=== PATIENT | male | born 1940 | race Hispanic/Latino ===

== ENCOUNTER 2017-12-20 13:28 | Inpatient (IN) | payer MEDICARE, MEDICAID ==
[~2017-12-20 13:28] MED LIST: ISOVUE-370 76%-LOCM 1 ML ONE
--- NOTE | 2017-12-20 14:05 | RAD ---
SINGLE VIEW OF THE CHEST: COMPARISON: 09/25/06. HISTORY: Chest pain with shortness of breath. FINDINGS: A single view of the chest shows an enlarged but stable cardiomediastinal silhouette. There is no ev idence of consolidation, mass, or pleural effusion. Degenerative changes are seen in the spine. IMPRESSION: No evidence of acute cardiopulmonary disease. POS: [facility]
[2017-12-20 14:15] LABS: Hemoglobin 8.3 g/dL (14.0-18.0); Mean Corpuscular HGB CONC 29.3 g/dL (32.0-36.0); Mean Corpuscular Hemoglobin 22.3 pg (27.0-31.0); Mean Platelet Volume 10.5 fL (7.4-10.4); Platelet Count 222 thou/uL (130-400); RBC Distribution Width 20.5 % (11.5-14.5); Red Blood Cell (RBC) Count 3.71 mill/uL (4.70-6.10); White Blood Cell (WBC) Count 5.2 thou/uL (4.8-10.8)
[2017-12-20 14:22] LABS: ALT (SGPT) 13 U/L (8-55); AST (SGOT) 21 U/L (5-34); Albumin 3.2 g/dL (3.4-4.8); Alkaline Phosphatase 118 U/L (40-150); Anion Gap 10 mmol/L (10-20); BUN (Urea Nitrogen) 16 mg/dL (8.4-25.7); Bilirubin, Total 0.8 mg/dL (0.2-1.2); CK (CPK) 39 U/L (30-200); Calc. Creatinine Clearance 0 mL/min (70-130); Calcium 8.6 mg/dL (7.8-10.44); Carbon Dioxide 23 mmol/L (23-31); Chloride 111 mmol/L (98-107); Estimated GFR-MDRD 60; Globulin 3.7 g/dL (2.4-3.5); Glucose 124 mg/dL (83-110); Lipase 45 U/L (8-78); Potassium 3.8 mmol/L (3.5-5.1); Protein, Total 6.9 g/dL (5.8-8.1); Sodium 140 mmol/L (136-145)
[2017-12-20 14:26] LABS: CKMB 1.3 ng/mL (0-6.6); Troponin I 0.032 ng/mL (< 0.028)
[2017-12-20] MEDS ORDERED: hydrALAZINE 20 MG/ML VIAL ONE (14:51)
--- NOTE | 2017-12-20 14:53 | CT ---
CTA OF THE CHEST WITH CONTRAST: COMPARISON: None. HISTORY: Dyspnea, difficulty breathing for 2-3 days. TECHNIQUE: Multiple contiguous axial images were obtained in a CTA of the chest with contrast per embolism cory col. Three-D oblique MIP reformats and direct coronal reformats were performed. FINDINGS: Pulmonary arteries are well opacified without filling defect to suggest pulmonary emboli. The heart is normal in size. There is hypertrophy of the left ventricular wall. No hilar or mediastinal lymph adenopathy are seen. There are small bilateral pleural effusions. No focal infiltrates or nodules are seen in the lungs. Degenerative changes are seen in the spine. The visualized subdiaphragmatic structures are unremarka ble. The chest wall soft tissues are unremarkable. IMPRESSION: 1. No evidence of pulmonary thromboembolism. 2. Small bilateral pleural effusions. POS: [facility]
[2017-12-20 15:00] LABS: #Eosinphils 0.1 thou/uL (0.0-0.7); #Monocytes 0.4 thou/uL (0.11-0.59); #Neutrophils 3.7 thou/uL (1.40-6.50); %Basophils 0.4 % (0.0-1.0); %Eosinophils 2.7 % (0.0-10.0); %Lymphocytes 18.9 % (21.0-51.0); %Monocytes 8.4 % (0.0-10.0); %Neutrophils 69.6 % (42.0-75.0); Anisocytosis SLIGHT = 6-15 cells (100X) (0-5/hpf); Hypochromia SLIGHT = 6-15 cells (100X) (0-5/hpf); MDiff Complete? YES; PLT Morphology Comment Appears Adequate
[2017-12-20] MEDS ORDERED: Azithromycin 500 MG in Sodium Chloride 0.9% 250 ML 250 ML IVPB SCH (15:15)
[2017-12-20] MEDS ORDERED: Ondansetron HCl/PF 4 MG/2 ML Vial IVP PRN (16:23)
[2017-12-20] MEDS ORDERED: Calcium Carbonate 500 MG ChewTAB PO PRN (16:23)
[2017-12-20] MEDS ORDERED: Acetaminophen 325 MG TAB PO PRN (16:23)
[2017-12-20] MEDS ORDERED: Milk Of Magnesia 30 ML UDCUP PO PRN (16:23)
[2017-12-20] MEDS ORDERED: Mag-Al 1200 mg/1200 mg/30 ML UDCUP PO PRN (16:23)
[2017-12-20] MEDS ORDERED: Dextrose 50% Abboject 50 ML SYRINGE SLOW IVP PRN (16:33)
[2017-12-20] MEDS ORDERED: Dextrose 5% in Water 1,000 ML IV PRN (16:33)
[2017-12-20] MEDS ORDERED: HumaLOG 300 UNITS/3 ML VIAL SC PRN (16:33)
--- NOTE | 2017-12-20 16:54 | PDOC.EVN ---
Attending Addendum - Attending Addendum I personally evaluated the patient and discussed the management with Dr. Franz. I agree with the History, Examination, Assessment and Plan documented in her H& P with any addition or exceptions noted below. Patient with history of sdCHF, CAD, presenting with 2-3 day history of increasing shortness of breath, cough productive of clear sputum, and dyspnea on exertion, with some orthopnea. He has recently returned from [place] after a 3 month stint. His vitals are stable, sats are 98% on 2L. His has mild rales on lung exam, and CTA that was performed shows bilateral pleural effusions. He has no wheezes or signs of obstructive lung disease on exam. Troponins are indeterminate, BNP elevated above baseline. His Hgb is 8.3 with microcytosis ( chronic). He will be admitted to tele for CHF exacerbation. Strict I/O, trend troponins. Echo as has not had one in over 4 years. Diuresis as needed. Ensure he is medically optimized. In regards to anemia, will review clinic records to see if this has been worked up as is chronic in nature and he has good follow up at our clinic.
[2017-12-20] MEDS ORDERED: Furosemide 40 MG/4 ML VIAL SLOW IVP SCH (17:00)
[2017-12-20 17:06] VITALS: BMI 22.8
[2017-12-20 17:13] LABS: Anion Gap 10 mmol/L (10-20); BUN (Urea Nitrogen) 18 mg/dL (8.4-25.7); Calc. Creatinine Clearance 45 mL/min (70-130); Calcium 8.3 mg/dL (7.8-10.44); Carbon Dioxide 23 mmol/L (23-31); Chloride 110 mmol/L (98-107); Estimated GFR-MDRD 69; Glucose 94 mg/dL (83-110); Potassium 3.8 mmol/L (3.5-5.1); Sodium 139 mmol/L (136-145)
[2017-12-20 17:18] LABS: Troponin I 0.037 ng/mL (< 0.028)
[2017-12-20] MEDS ORDERED: Carvedilol 25 MG TAB PO SCH (19:45)
[2017-12-20] MEDS ORDERED: hydrALAZINE 20 MG/ML VIAL SLOW IVP PRN (19:45)
[2017-12-20 20:15] LABS: Troponin I 0.045 ng/mL (< 0.028)
[2017-12-20] MEDS ORDERED: Prevnar 13-Val Conj/PF 0.5 ML SYRINGE IM ONE (21:00)
[2017-12-20] MEDS: Allopurinol 100 MG TAB PO SCH (21:06)
[2017-12-20] MEDS: Ferrous Sulfate 325 MG TAB PO SCH (21:06)
[2017-12-20] MEDS: Atorvastatin Calcium 40 MG TAB PO SCH (21:06)
--- NOTE | 2017-12-20 22:55 | HP-2 ---
DATE OF ADMISSION: 12/20/2017 at 1500. CODE STATUS: FULL. PRIMARY CARE PHYSICIAN: [facility]. ATTENDING PHYSICIAN: Dr. Sampson. RESIDENT: Dr. Aranza Franz, PGY-3 HISTORIAN: Patient's daughter and patient, use of healthcare interpreter CHIEF COMPLAINT: Difficulty breathing for the last 3 days. HISTORY OF PRESENT ILLNESS: Patient is a 77-year-old male who presented to the Emergency Department with chief complaint of shortness of breath for the last 2-3 days. The patient's daughter endorses that he lives with her at home and he has been increasingly short of breath over this time, he even gets short of breath sitting up. She also endorses that he has had nausea and has been spitting up quite a bit of phlegm over the last few days. He endorses that he had these symptoms about 2 years ago and they have not returned since. Approximately 2 years ago was last time patient was admitted to the hospital for a CHF exacerbation. He specifically denied any previous history of [place], though he does have history of coronary artery disease with stent placement. He also denies any history of blood clots. No recent surgeries or prolonged periods of immobility. Patient also returned to the [place] from [place] on 11/27/2017. His daughter states that he was there for approximately 3 months. He denies any fevers, chills, night sweats, chest pain , diarrhea, constipation, abdominal pain, rashes, weakness or syncopal episodes. PAST MEDICAL HISTORY: 1. History of congestive heart failure with reduced ejection fraction echo in 2013 showed EF of 40-45% 2. History of microcytic anemia. Patient has had previous colonoscopy which showed diverticulosis. 3. Gout. 4. Peripheral artery disease. 5. Diabetes mellitus type 2, not currently on medications. 6. Osteoarthritis. 7. Benign prostatic hyperplasia. 8. Coronary artery disease with stent placement. 9. Hyperlipidemia. 10. Hypertension. PAST SURGICAL HISTORY: Cardiac stent placement. ALLERGIES: No known drug allergies. MEDICATIONS: 1. Enalapril 20 mg p.o. daily. 2. Atorvastatin 40 mg p.o. daily. 3. Carvedilol 25 mg daily. 4. Sublingual nitro 0.4 mg p.r.n. chest pain. 5. Ferrous sulfate 325 mg p.o. b.i.d. 6. Allopurinol 100 mg takes 2 tabs daily. 7. Colchicine 0.6 mg 1 tab p.o. daily. FAMILY HISTORY: None pertinent. SOCIAL HISTORY: Patient quit smoking approximately 6 years ago. He was smoking half a pack a day since the age of 15. He specifically denied any alcohol or drug use. He denies any ill contacts and lives with his daughter in [place], [place]. REVIEW OF SYSTEMS: Ten-point review of systems was conducted. Pertinent positives are mentioned in the HPI, all others are negative. PHYSICAL EXAMINATION: VITAL SIGNS: Blood pressure 151/62, pulse 71, respirations 20, T-max 98.1, pulse ox 98% on 2 liters. Current weight 54 kilograms. GENERAL: The patient is alert and oriented x3. He does not appear in acute distress. He is well developed, appropriately interactive during the interview and exam. healthcare interpreter line used. Questions answered appropriately. EYES: Pupils are equally round and reactive to light and accommodation. Extraocular muscles are intact. Conjunctiva within normal limits. Arcus senilis noted. ENT: Nasal mucosa and oropharynx moist without erythema. NECK: Supple, no lymphadenopathy, no thyromegaly. CARDIOVASCULAR: Regular rate and rhythm, no murmurs, gallops, clicks or rubs noted. Radial pulses +2. RESPIRATORY: Normal effort, no retractions. Diffuse rales throughout lung exam with mild end expiratory wheezing at bases. SKIN: Warm and dry, free of cyanosis or lesions. ABDOMEN: Soft, nontender to palpation. Bowel sounds present in all 4 quadrants. No masses or distention. EXTREMITIES: Showed no clubbing, cyanosis or edema. MUSCULOSKELETAL: Structure and tone within normal limits. Full range of motion. The patient is moving all 4 extremities, though he does appear weak and has difficulty sitting up in bed. NEUROLOGIC: No focal deficits. PSYCHIATRIC: Appropriate. LABORATORY DATA: White count 5.2, hemoglobin 8.3, hematocrit 28.1, platelets 222, MCV at 76. Sodium 140, potassium 3.8, chloride 111, bicarbonate 23, BUN 16 , creatinine 1.18, glucose 124, calcium 8.6, AST 21, ALT 13, alkaline phosphatase 118, total protein 6.9, albumin 3.2, total bilirubin 0.8, GFR of 60 , D-dimer of 1.15. Lipase of 45. BNP of 2275. Troponin of 0.032, which is indeterminate, CK of 39. Chest x-ray showed no acute findings. CTA of the chest showed no acute pulmonary embolisms. Though presence of bilateral pleural effusions. ASSESSMENT AND PLAN: This is a 77-year-old male with: 1. Acute reduced ejection fraction congestive heart failure exacerbation. We will admit the patient to the telemetry service. Patient last had an echo in 2013 which showed an ejection fraction of 40-45% so we will repeat this. Patient states that he does not have a stitcher feeder. He just followed in our clinic for management of his heart failure. I did note he used to be on oral Lasix daily and now this is no longer on his medication list. We will start IV Lasix to aid with diuresis and measure strict I's and O's. We have adjusted his diet to fluid restricted, low sodium diet. Education will be provided by the staff concerning congestive heart failure and we will also attempt to set him up with the [facility] in [facility]. We will continue his home TYREE inhibitor, beta nikki and statin. 2. History of coronary artery disease. We will continue patient's home statin. The patient is not on any antiplatelet agent, so we will start him on 81 mg aspirin. 3. Diabetes mellitus type 2. Patient is not currently on medications, though he was previously on metformin. We will check an A1c and conduct Accu-Cheks and give sliding scale as needed. 4. Microcytic anemia. Patient reports that he had a colonoscopy which showed diverticulosis, but no evidence of any acute bleed. His last iron studies in 2014 showed decreased TIBC within normal ferritin and iron, so this could possibly represent anemia of chronic disease. We will repeat iron studies during his stay. 5. Elevated troponins. We will trend these likely secondary to demand ischemia. Patient did not have any complaints of chest pain. 6. Hypertension. We will restart his home medications of enalapril and carvedilol. 7. Hyperlipidemia as above. 8. Gout. We will continue patient's home medication of allopurinol and colchicine. 9. Deep venous thrombosis prophylaxis. We will use Lovenox. DISPOSITION AND LENGTH OF STAY: Greater than 2 days. Symptomatic medications will be provided. History and physical exam as well as management was discussed with Dr. Sampson. FELIBERTO
[2017-12-21 00:21] LABS: Troponin I 0.048 ng/mL (< 0.028)
[2017-12-21 03:21] LABS: #Eosinphils 0.2 thou/uL (0.0-0.7); #Lymphocytes 1.5 thou/uL (1.20-3.40); #Monocytes 0.7 thou/uL (0.11-0.59); #Neutrophils 4.4 thou/uL (1.40-6.50); %Basophils 0.1 % (0.0-1.0); %Eosinophils 2.9 % (0.0-10.0); %Lymphocytes 22.1 % (21.0-51.0); %Monocytes 10.3 % (0.0-10.0); %Neutrophils 64.6 % (42.0-75.0); Anisocytosis SLIGHT = 6-15 cells (100X) (0-5/hpf); Hemoglobin 8.4 g/dL (14.0-18.0); Hypochromia SLIGHT = 6-15 cells (100X) (0-5/hpf); MDiff Complete? YES; Mean Corpuscular HGB CONC 30.8 g/dL (32.0-36.0); Mean Corpuscular Hemoglobin 22.9 pg (27.0-31.0); Mean Corpuscular Volume 74.4 fl (80.0-94.0); Mean Platelet Volume 10.1 fL (7.4-10.4); Platelet Count 250 thou/uL (130-400); RBC Distribution Width 20.5 % (11.5-14.5); Red Blood Cell (RBC) Count 3.65 mill/uL (4.70-6.10); White Blood Cell (WBC) Count 6.8 thou/uL (4.8-10.8)
[2017-12-21 03:22] LABS: Troponin I 0.045 ng/mL (< 0.028)
[2017-12-21 03:28] LABS: Hemoglobin A1c 5.6 % (4.0-6.0)
[2017-12-21] MEDS ORDERED: Carvedilol 25 MG TAB PO SCH ×2 (08:00→20:00)
--- NOTE | 2017-12-21 08:49 | PDOC.FM ---
- Subjective Subjective: Patient doing well this AM. No significant overnight events. His shortness of breath has improved. Patient denies chest pain or palpitations. No changes on telemetry strip. - Objective MAR Reviewed: Yes Vital Signs & Weight: Vital Signs (12 hours) Temp Pulse Resp BP BP BP BP 12/21/17 07:50 98.3 F 60 18 12/21/17 07:17 98.3 F 60 18 174/75 H 185/81 H 185/84 H 12/21/17 03:50 98.6 F 59 L 16 163/75 H 12/20/17 23:10 98.4 F 57 L 20 151/67 H Pulse Ox 12/21/17 07:50 12/21/17 07:17 99 12/21/17 03:50 98 12/20/17 23:10 100 Weight Weight 50.757 kg I&O: 12/20/17 12/21/17 12/22/17 06:59 06:59 06:59 Intake Total 520 Output Total 1450 Balance -930 Result Diagrams: 12/21/17 02:43 12/20/17 16:43 EKG Reviewed by me: Yes Radiology Reviewed by me: Yes <Mirta Portilol - Last Filed: 12/21/17 09:07> - Objective Vital Signs & Weight: Vital Signs (12 hours) Temp Pulse Resp BP BP BP BP 12/21/17 09:29 12/21/17 07:50 98.3 F 60 18 12/21/17 07:17 98.3 F 60 18 174/75 H 185/81 H 185/84 H 12/21/17 03:50 98.6 F 59 L 16 163/75 H 12/20/17 23:10 98.4 F 57 L 20 151/67 H Pulse Ox 12/21/17 09:29 96 12/21/17 07:50 12/21/17 07:17 99 12/21/17 03:50 98 12/20/17 23:10 100 Weight Weight 50.757 kg I&O: 12/20/17 12/21/17 12/22/17 06:59 06:59 06:59 Intake Total 520 Output Total 1450 300 Balance -930 -300 Result Diagrams: 12/21/17 02:43 12/20/17 16:43 <Cristopher Sampson - Last Filed: 12/21/17 11:07> Phys Exam - Physical Examination Constitutional: NAD HEENT: moist MMs Neck: supple Wheezing diffusely throughout posteriorly Cardiovascular: RRR, no significant murmur Gastrointestinal: soft, no distention Musculoskeletal: no edema Neurological: non-focal, moves all 4 limbs Psychiatric: normal affect, A&O x 3 Skin: cap refill <2 seconds <LindseyMirta - Last Filed: 12/21/17 09:07> Dx/Plan (1) Acute exacerbation of CHF (congestive heart failure) Code(s): I50.9 - HEART FAILURE, UNSPECIFIED Status: Acute (2) CAD (coronary artery disease) Code(s): I25.10 - ATHSCL HEART DISEASE OF [place] CORONARY ARTERY W/O ANG PCTRS Status: Chronic (3) Microcytic anemia Code(s): D50.9 - IRON DEFICIENCY ANEMIA, UNSPECIFIED Status: Acute (4) Elevated troponin Code(s): R74.8 - ABNORMAL LEVELS OF OTHER SERUM ENZYMES Status: Acute (5) HTN (hypertension) Code(s): I10 - ESSENTIAL (PRIMARY) HYPERTENSION Status: Chronic QualifierTitle: Hypertension type: essential hypertension Qualified Code( s): I10 - Essential (primary) hypertension (6) HLD (hyperlipidemia) Code(s): E78.5 - HYPERLIPIDEMIA, UNSPECIFIED Status: Chronic (7) Diabetes mellitus type 2 Code(s): E11.9 - TYPE 2 DIABETES MELLITUS WITHOUT COMPLICATIONS Status: Chronic - Plan Plan: 1. Acute CHF exacerbation - Echo in 2013 showed EF 40-45% - Small bilateral pleural effusions seen on CTA chest - Continue BB, TYREE-I, Lasix - Strict I&O's - Echo pending - BNP 2274 which is elevated from baseline - Fluid restriction diet - D-dimer elevated at 1.15, CTA negative for PE - On 2L of O2 2. CAD s/p stent - Continue BB - Continue atorvastatin - HH diet 3. Microcytic anemia - Prior iron studies showed normocytic anemia consistent with ACD - Repeat iron studies 4. DM II - Not on any medications - HgA1c 5.6 - Accuchecks ACHS 5. Elevated troponins - Downtrended - No CP 6. HTN - Continue home medications 7. HLD - continue home medications Dispo: Stable. Continue diuresis. Consider adding nebulizer treatments for wheezing. Possible d/c tomorrow. <Mirta Portillo - Last Filed: 12/21/17 09:07> Attending Addendum - Attending Addendum I personally evaluated the patient and discussed the management with Dr. Portillo. I agree with the History, Examination, Assessment and Plan documented above with any addition or exceptions noted below. Patient feels better after mild diuresis. His BP are elevated and we will escalate anti HTN therapy today. Continue diuresis and encourage ambulation. If doing well, likely discharge tomorrow on maintenance Lasix therapy as outpatient. <Cristopher Sampson - Last Filed: 12/21/17 11:07>
[2017-12-21 08:52] LABS: Iron 23 ug/dL (65-175)
[2017-12-21] MEDS ORDERED: Colchicine 0.6 MG TAB PO SCH (09:00)
[2017-12-21] MEDS ORDERED: Furosemide 40 MG/4 ML VIAL SLOW IVP SCH (09:00)
[2017-12-21] MEDS: Allopurinol 100 MG TAB PO SCH ×2 (09:18→20:14)
[2017-12-21] MEDS: Enoxaparin Sodium 40 MG/0.4 ML SYRINGE SC SCH (09:19)
[2017-12-21] MEDS: Ferrous Sulfate 325 MG TAB PO SCH ×2 (09:19→20:14)
[2017-12-21 10:25] LABS: Iron Binding Capacity, Total 294 mcg/dL (261-462)
[2017-12-21] MEDS: Atorvastatin Calcium 40 MG TAB PO SCH (20:14)
--- NOTE | 2017-12-22 06:44 | PDOC.FM ---
- Subjective Subjective: Patient doing well this AM. No significant overnight events. He denies any chest pain or shortness of breath. He states that he is even better than yesterday. - Objective MAR Reviewed: Yes Vital Signs & Weight: Vital Signs (12 hours) Temp Pulse Resp BP Pulse Ox 12/22/17 04:34 98.4 F 63 18 161/76 H 93 L 12/22/17 00:43 98.6 F 64 18 160/72 H 92 L 12/21/17 20:25 98.2 F 73 14 90 L 12/21/17 18:54 98.2 F 73 14 164/72 H 90 L Weight Weight 50.258 kg I&O: 12/20/17 12/21/17 12/22/17 06:59 06:59 06:59 Intake Total 520 840 Output Total 1450 600 Balance -930 240 Result Diagrams: 12/21/17 02:43 12/20/17 16:43 EKG Reviewed by me: Yes Radiology Reviewed by me: Yes <Mirta Portillo - Last Filed: 12/22/17 08:43> - Objective Vital Signs & Weight: Vital Signs (12 hours) Temp Pulse Resp BP BP Pulse Ox 12/22/17 08:17 98.2 F 69 16 12/22/17 07:10 98.2 F 69 16 181/81 H 96 12/22/17 04:34 98.4 F 63 18 161/76 H 93 L 12/22/17 00:43 98.6 F 64 18 160/72 H 92 L Weight Weight 50.258 kg I&O: 12/21/17 12/22/17 12/23/17 06:59 06:59 06:59 Intake Total 520 840 Output Total 1450 600 Balance -930 240 Result Diagrams: 12/21/17 02:43 12/20/17 16:43 <Cristopher Sampson - Last Filed: 12/22/17 10:50> Phys Exam - Physical Examination Constitutional: NAD HEENT: moist MMs Neck: supple Respiratory: no wheezing, clear to auscultation bilateral Cardiovascular: RRR Gastrointestinal: soft, positive bowel sounds Musculoskeletal: no edema Neurological: non-focal, moves all 4 limbs Psychiatric: A&O x 3 Skin: no rash, cap refill <2 seconds <Mirta Portillo - Last Filed: 12/22/17 08:43> Dx/Plan (1) Acute exacerbation of CHF (congestive heart failure) Code(s): I50.9 - HEART FAILURE, UNSPECIFIED Status: Acute (2) CAD (coronary artery disease) Code(s): I25.10 - ATHSCL HEART DISEASE OF [place] CORONARY ARTERY W/O ANG PCTRS Status: Chronic (3) Microcytic anemia Code(s): D50.9 - IRON DEFICIENCY ANEMIA, UNSPECIFIED Status: Acute (4) Elevated troponin Code(s): R74.8 - ABNORMAL LEVELS OF OTHER SERUM ENZYMES Status: Acute (5) HTN (hypertension) Code(s): I10 - ESSENTIAL (PRIMARY) HYPERTENSION Status: Chronic QualifierTitle: Hypertension type: essential hypertension Qualified Code( s): I10 - Essential (primary) hypertension (6) HLD (hyperlipidemia) Code(s): E78.5 - HYPERLIPIDEMIA, UNSPECIFIED Status: Chronic (7) Diabetes mellitus type 2 Code(s): E11.9 - TYPE 2 DIABETES MELLITUS WITHOUT COMPLICATIONS Status: Chronic - Plan Plan: 1. Acute CHF exacerbation - Echo in 2013 showed EF 40-45% - Small bilateral pleural effusions seen on CTA chest - Continue BB, TYREE-I - Strict I&O's - Echo shows EF 40-45% with grade 2/3 diastolic dysfunction and small pericardial effusion without tamponade - BNP 2274 which is elevated from baseline - Fluid restriction diet - D-dimer elevated at 1.15, CTA negative for PE - Satting 90's on RA - Add lasix to home regimen 2. CAD s/p stent - Continue BB - Continue atorvastatin - HH diet 3. Microcytic anemia - Prior iron studies showed normocytic anemia consistent with ACD - Repeat iron studies 4. DM II - Not on any medications - HgA1c 5.6 - Accuchecks ACHS 5. Elevated troponins - Downtrended - No CP 6. HTN - Continue home medications - Increased enalapril to 40 mg daily from 20 mg daily 7. HLD - Continue home medications Dispo: Stable. Plan to discharge home today. <Mirta Portillo - Last Filed: 12/22/17 08:43> Attending Addendum - Attending Addendum I personally evaluated the patient and discussed the management with Dr. Portillo. I agree with the History, Examination, Assessment and Plan documented above with any addition or exceptions noted below. Patient feeling well this morning. No evidence of volume overload. He will be discharged on higher dose of anti-HTN therapy for better control. Follow up with PCP in 1 week. <Cristopher Sampson - Last Filed: 12/22/17 10:50>
[2017-12-22] MEDS ORDERED: metFORMIN 500 MG TAB PO SCH (08:00)
[2017-12-22] MEDS ORDERED: Carvedilol 25 MG TAB PO SCH (08:00)
[2017-12-22] MEDS ORDERED: Furosemide 20 MG TAB PO SCH (09:00)
[2017-12-22] MEDS: Allopurinol 100 MG TAB PO SCH (09:12)
[2017-12-22] MEDS: Ferrous Sulfate 325 MG TAB PO SCH (09:12)
[2017-12-22] MEDS: Enoxaparin Sodium 40 MG/0.4 ML SYRINGE SC SCH (09:13)
[2017-12-22 11:50] VITALS: BP 108/59; TEMP 97.8
--- NOTE | 2017-12-23 00:11 | DIS-2 ---
DATE OF ADMISSION: 12/20/2017. DATE OF DISCHARGE: 12/22/2017. RESIDENT: Mirta Portillo DO ADMITTING ATTENDING: Cristopher Sampson MD DISCHARGE ATTENDING: Cristopher Sampson MD CONSULTATIONS: Cardiac Rehabilitation. PROCEDURES: 1. Chest x-ray. No evidence of acute cardiopulmonary disease. 2. Chest/thorax CTA. No evidence of pulmonary thromboembolism. There are small bilateral pleural effusions. 3. Echocardiogram report showed ejection fraction estimated at 40%-45%, which is stable from previous echocardiogram. There is grade 2/3 diastolic dysfunction and the left ventricular size appeared mildly decreased with increased left ventricular wall thickness. There is a small pericardial effusion without tamponade. PRIMARY DIAGNOSES: 1. Acute congestive heart failure exacerbation. 2. Coronary artery disease. SECONDARY DIAGNOSES: 1. Microcytic anemia. 2. Elevated troponin. 3. Hypertension. 4. Hyperlipidemia. 5. Diabetes mellitus type 2. DISCHARGE MEDICATIONS: 1. Aspirin 81 mg oral daily. 2. Furosemide 20 mg oral daily. 3. Metformin 500 mg oral twice daily with meals. 4. Ferrous sulfate 325 mg oral twice daily. 5. Combivent 1 puff inhalation twice daily as needed. 6. Allopurinol 200 mg oral daily. 7. Atorvastatin 40 mg oral at bedtime. 8. Carvedilol 25 mg oral twice daily. 9. Enalapril maleate 40 mg oral daily. DISCONTINUED MEDICATIONS: Enalapril 20 mg was increased to 40 mg oral daily and metformin 500 mg q.a.m. was increased to b.i.d. HISTORY OF PRESENT ILLNESS/HOSPITAL COURSE: This is a 77-year-old male who presented to the emergency department with chief complaint of shortness of breath for the last 2-3 days. The patient's daughter endorsed that he is living with her at home and has been increasingly short of breath over this time even while sitting up. She endorsed that he had been nauseous and having spitting up quite a bit of phlegm over the last few days. He did endorse that these symptoms had occurred 2 years ago and had not occurred since that time. Approximately 2 years ago was the last time the patient was admitted to the hospital for a CHF exacerbation. He specifically denied any previous history of [place], though he does have a history of coronary artery disease with stent placement. He also denies any history of blood clots. There are no recent triggers of prolonged periods of immobility. The patient also returned to [place] from [place] on the 8th of this month. His daughter states that he was there for approximately 3 months. He denies any fever, chills, night sweats, chest pain, diarrhea, constipation, abdominal pain, rashes, weakness, or syncopal episodes. The patient remained stable throughout the course of his hospital stay. He was diuresed with 40 mg of IV Lasix for a few days in a row and his shortness of breath drastically improved. He was able to walk around and was weaned off oxygen and satting well on room air. An echocardiogram was repeated and his ejection fraction is stable at 40%-45%. Laboratory findings were remarkable for a D-dimer of 1.15. A CTA of the chest was performed, which was negative for any PE. Additionally, troponins were trended and they did down trend. They went from 0.03 to 0.037 to 0.048, back down to 0.045. Likely this is secondary to demand ischemia. Additionally, the patient was found to have microcytic anemia. He had an iron of 223, a TIBC of 294, and a ferritin 44.84. He was recently taken off his iron 2 weeks ago for an unknown reason, and he has been previously worked up for his iron deficiency anemia. The patient did really well throughout the course of his hospital stay. He was not on Lasix prior to admission. He was transitioned to 20 mg p.o. oral Lasix and advised to continue taking this on a daily basis. Additionally, there seemed to be some component of COPD, although he has not been previously diagnosis with COPD. He was wheezing on exam at certain points during his hospitalization and DuoNeb treatment seems to help drastically with his wheezing and shortness of breath. Recommend potentially following this up as an outpatient to optimize medical treatment. His hemoglobin remained stable as previously stated. Has been worked up for iron deficiency anemia in the past. Iron was 23 with a low normal ferritin level. It was advised that he continue taking his iron b.i.d. daily. The patient felt comfortable going home. He no longer appeared fluid overloaded. His lungs were clear to auscultation. He was advised to continue Lasix 20 mg oral daily and continue with iron b.i.d. as previously stated. DISPOSITION: Stable. DISCHARGE INSTRUCTIONS: 1. Location: Home. 2. Activity: Cardiopulmonary limitations. 3. Diet: Heart healthy and diabetic diet. 4. Followup: The patient is to follow up with [facility] within 7 days of discharge to ensure resolution/improvement in symptoms. FELIBERTO
--- NOTE | 2017-12-23 14:58 | EKG ---
Test Reason : Blood Pressure : / mmHG Vent. Rate : 065 BPM Atrial Rate : 065 BPM P-R Int : 154 ms QRS Dur : 108 ms QT Int : 414 ms P-R-T Axes : 046 030 216 degrees QTc Int : 430 ms Normal sinus rhythm Incomplete right bundle branch block Abnormal ECG No significant change compared with 12/02/2013 Confirmed by THALIA MILES DO ([id number]), editor & co founder ISH CAVANAUGH ([id number]) on 12/23/2017 2:58:21 PM Referred By: Confirmed By:THALIA MILES DO
== END 2017-12-22 13:21 | disposition home or self-care (01) | DRG 292 ==
LOC: ERS 13:28 → 2SW 15:07 → OBSVTOIN 16:23
PROVIDERS: ADMIT Student in an Organized Health Care Education/Training Program; ATTEND Student in an Organized Health Care Education/Training Program
DX: I11.0 Hypertensive heart disease with heart failure (principal); I24.8 Other forms of acute ischemic heart disease; E11.51 Type 2 diabetes mellitus with diabetic peripheral angiopathy without gangrene; I31.3 Pericardial effusion (noninflammatory); I50.43 Acute on chronic combined systolic (congestive) and diastolic (congestive) heart failure; I25.10 Atherosclerotic heart disease of native coronary artery without angina pectoris; D50.9 Iron deficiency anemia, unspecified; E78.5 Hyperlipidemia, unspecified; J44.9 Chronic obstructive pulmonary disease, unspecified; Z87.891 Personal history of nicotine dependence; M10.9 Gout, unspecified; I16.0 Hypertensive urgency; Z95.5 Presence of coronary angioplasty implant and graft
CPT/HCPCS: 36415; 36416; 71045; 71275; 80053; 82550; 82553; 82728; 83036; 83540; 83550; 83690; 83880; 84484; 85025; 85379; 90471; 90670; 93005; 93306; 94640; 96374; 96375; A4216; G0009; G8978-GP-CJ; G8979-GP-CJ; G8980-GP-CJ; J0360; J0456; J0696; J1650; J1940; J7050; J7620